=== PATIENT | female | born 1935 | race Caucasian/White ===

== ENCOUNTER 2017-11-17 16:04 | Inpatient (IN) ==
--- NOTE | 2017-11-17 17:20 | Internal Med History&Physical ---
Date of Encounter: 11/17/17 Time of Encounter: 16:15 Assessment and Plan (1) COPD exacerbation Current visit: No Status: Acute she was taken off steroids but not weaned down. she is wheezing and not moving much air. will place on po prednisone and scheduled duonebs and her mdi and oxygen. will place on continuous pulse ox and tele as is weak and very decondtioned. finish levaquin (2) Hypertension, essential Current visit: No Status: Acute (3) DVT prophylaxis Current visit: No Status: Acute on xarelto (4) Atrial fibrillation Current visit: No Status: Acute she had afib with rvr at [facility] and had a beta tacho added to her cardizem. will cont. will place on tele since she is so deconditioned and sob. she is anticoagulated with xarelto Qualifiers: Atrial fibrillation type: chronic Qualified Code(s): I48.2 - Chronic atrial fibrillation (5) Physical deconditioning Current visit: Yes Status: Acute pt ot. she is here for rehab. i am not sure she is going to be able to handle doing this. may need to changed back to acute inpatient. will keep a close eye on her tonight and see how she does Internal Medicine - H&P: HPI Chief complaint: here for rehab Admitted From: Hospital to Hospital Transfer History of present illness: Ms. Bentley is a 82 year old female with a history of resp failure who was intubated at [facility]. she was extubated on 11/13/17. She is been weak deconditioned. She is here for rehabilitation. She does complain of having some shortness of breath she is very tired fatigued we woke her up and she did not know where she was she was confused and disoriented. Notes from [facility] said that she had some psychosis they had stopped her steroids but they did not wean them due to the thought that it was due to the steroids. She denies chest pain. She does have back pain and has been uncomfortable from that the squad ride over here did not help that. s he has a long-standing history of COPD she is a former smoker. This is the first time and she has ever been intubated He just wants to rest. Past Med Surg Social Fam HX - Past Medical History Attestation: Yes The following information was validated with the patient. Medical history: atrial fibrillation, CHF, COPD (with resp failure and intubation), hypertension, osteoporosis Psychiatric history: no psych history - Past Surgical History Surgical History: no surgical history - Social History Smoking Status: Former smoker (quit a year ago) Smokeless Tobacco Status: No Alcohol use: none Drug use: none Current living situation: With Family - Family History Mother Hx Family Cardiac Disorders: Yes (CHF) Father History Unknown: Yes Maternal Grandmother Living Status: Cause of : cad Maternal Grandfather Living Status: Cause of : cad Internal Medicine - H&P: Meds traMADol [Ultram] 50 mg PO TID PRN 02/03/16 [History] Rivaroxaban [Xarelto] 20 mg PO DAILY #30 tablet 02/07/16 [Rx] Albuterol Sulfate [Ventolin Hfa] 2 puff IH Q4H PRN 11/10/17 [History] Umeclidinium Brm/Vilanterol Tr [Anoro Ellipta 62.5-25 Mcg INH] 1 puff IH DAILY 11/10/17 [History] Diltiazem HCl [Diltiazem 24Hr Cd] 360 mg PO DAILY 11/11/17 [History] Budesonide Neb [Pulmicort Neb] 0.5 mg IH BIDR inhsol 11/17/17 [Rx] Docusate [Colace] 100 mg PO BID PRN capsule 11/17/17 [Rx] Furosemide [Lasix] 20 mg PO DAILY #20 tablet 11/17/17 [Rx] Ipratropium/Albuterol Neb [Duoneb] 3 ml IH [id number] 11/17/17 [History] Levofloxacin [Levaquin] 500 mg PO DAILY #3 tablet 11/17/17 [Rx] Metoprolol [Lopressor] 25 mg PO BID tablet 11/17/17 [Rx] Omeprazole [PriLOSEC] 20 mg PO DAILY@0630 capsule. 11/17/17 [Rx] 3 Allergy/AdvReac Type Severity Reaction Status Date / Time Penicillins [PCN] Allergy Rash Verified 02/03/16 13:41 All Systems PM: A 10-system review of systems was performed and is negative for pertinent findings except as documented above in the HPI. - Constitutional Constitutional: malaise, weakness, no chills, no fever(s) - EENT Eyes: no change in vision - Cardiovascular Cardiovascular ROS IM: dyspnea, lightheadedness, no chest pain, no palpitations - Respiratory Respiratory: cough, dyspnea, wheezing - Gastrointestinal Gastrointestinal: constipation, no abdominal pain, no diarrhea, no hematochezia , no melena, no nausea, no vomiting - Genitourinary Genitourinary: no dysuria, no hematuria - Musculoskeletal Musculoskeletal ROS IM: muscle weakness - Integumentary Integumentary IM: no pruritus, no rash - Constitutional General appearance: Present: mild distress, answers questions appropriately ( but did not initially. she was asleep woke her up and she did not know where she was) - Head Head exam: Present: atraumatic, normocephalic - Neck Neck exam general surgery: Present: supple, trachea midline. Absent: lymphadenopathy - Respiratory Respiratory exam: Present: decreased breath sounds, prolonged expiratory phase, wheezes - Cardiovascular Cardiovascular exam: Present: irregular rhythm. Absent: systolic murmur - GI/Abdominal GI/Abdominal exam: Present: normal bowel sounds, soft, no peritoneal signs. Absent: distended, mass, tenderness - Extremities Exam Extremities exam: Present: pedal edema. Absent: normal capillary refill, mottling - Skin Skin exam: Present: dry, warm. Absent: rash
[2017-11-17] MEDS: predniSONE 20 MG TABLET PO SCH (17:48)
[2017-11-17] MEDS: Ipratropium/Albuterol Neb 3 ML IH SCH (17:48)
[2017-11-17] MEDS: traMADol 50 MG TABLET PO PRN (17:49)
[2017-11-17] MEDS: Budesonide Neb 0.5 MG/2 ML IH SCH (21:42)
[2017-11-18] MEDS: Ipratropium/Albuterol Neb 3 ML IH SCH ×6 (00:09→21:44)
[2017-11-18] MEDS: traMADol 50 MG TABLET PO PRN ×2 (04:59→21:46)
[2017-11-18] MEDS ORDERED: *HR* Enoxaparin 40 MG/0.4 ML SYRINGE SQ SCH (06:00)
[2017-11-18 06:18] LABS: Basophils # 0.1 K/mcL (0.0-0.2); Basophils % 0.5 %; Hematocrit 39.4 % (35.3-44.9); Hemoglobin 12.4 g/dL (11.5-15.4); Lymphocytes # 0.8 K/mcL (0.6-4.6); Lymphocytes % 4.3 %; Mean Corpuscular HGB Conc 31.5 g/dL (31.6-35.5); Mean Corpuscular Hemoglobin 29.3 pg (28.0-33.3); Mean Corpuscular Volume 93.1 fL (83.0-100.0); Mean Platelet Volume 10.7 fL (9.4-12.4); Monocytes % 0.8 %; Neutrophils # 16.1 K/mcL (1.6-8.9); Platelet Count 255 K/mcL (140-400); Red Blood Count 4.23 M/mcL (3.82-4.97); Red Cell Distribution Width 15.1 % (11.5-14.5); Segmented Neutrophils % 90.4 %
[2017-11-18 06:20] LABS: INR 1.3; Prothrombin Time 13.7 Seconds (9.4-12.1)
[2017-11-18 06:30] LABS: Monocytes # 0.1 K/mcL (0.0-1.3)
[2017-11-18 06:40] LABS: BUN/Creatinine Ratio 29 (6-26); Blood Urea Nitrogen 23 mg/dL (8-23); Calcium 8.9 mg/dL (8.6-10.3); Carbon Dioxide 41 mEq/L (23-29); Chloride 97 mEq/L (98-107); Glucose 170 mg/dL (70-105); Osmolality,Calculated 302 (280-300); Sodium 142 mEq/L (136-145); eGFR For African Americans > 60 (> 60); eGFR For Non-African Americans > 60 (> 60)
--- NOTE | 2017-11-18 08:02 | Internal Med Progress Note ---
Date of Encounter: 11/18/17 Time of Encounter: 08:02 - Assessment and plan (1) COPD exacerbation Current Visit: Yes Status: Acute (2) Hypertension, essential Current Visit: Yes Status: Acute (3) DVT prophylaxis Current Visit: Yes Status: Acute Assessment and plan: xarelto (4) Atrial fibrillation Current Visit: No Status: Acute Assessment and plan: she did get tachycardia and increased the dose of metoprolol Qualifiers: Atrial fibrillation type: chronic Qualified Code(s): I48.2 - Chronic atrial fibrillation (5) Physical deconditioning Current Visit: Yes Status: Acute Assessment and plan: here for pt/ot rehab - Subjective Interval history: she looks better today. she got up to the restroom had a stool. she did get low on o2 sat but she was not on oxygen and she got tachy. she was sitting in the chair resting comfortably this am taking a new. states her breathing is better, she is still coughing. she did not want to get up this morning but she is glad she did as she feels better and the neb treatments really help her as well she states. she is looking forward to getting stronger so she can get back home and not need someone to look after her. - Constitutional Vitals: Temp Pulse Resp BP Pulse Ox 97.4 F L 82 18 161/78 93 11/18/17 07:01 11/18/17 07:01 11/18/17 07:01 11/18/17 07:01 11/18/17 07:01 General appearance: Present: mild distress, answers questions appropriately ( but did not initially. she was asleep woke her up and she did not know where she was) - Head Head exam: Present: atraumatic, normocephalic - Neck Neck exam general surgery: Present: supple, trachea midline. Absent: lymphadenopathy - Respiratory Respiratory exam: Present: decreased breath sounds (but improved from yesterday) , prolonged expiratory phase, wheezes - Cardiovascular Cardiovascular exam: Present: RRR. Absent: systolic murmur - GI/Abdominal GI/Abdominal exam: Present: normal bowel sounds, soft, no peritoneal signs. Absent: distended, tenderness - Extremities Exam Extremities exam: Present: normal capillary refill, warm. Absent: mottling, pedal edema - Skin Skin exam: Present: dry, warm. Absent: rash Internal Medicine: Result - Labs CBC & Chem 7: 11/18/17 05:55 11/18/17 05:55 Labs: Short CBC 11/18/17 Range/Units 05:55 WBC 17.8 H (4.3-11.1) K/mcL Hgb 12.4 (11.5-15.4) g/dL Hct 39.4 (35.3-44.9) % Plt Count 255 (140-400) K/mcL Neutrophils # 16.1 H (1.6-8.9) K/mcL BMP 11/18/17 05:55 Sodium 142 Potassium 5.0 Chloride 97 L Carbon Dioxide 41 H* BUN 23 Creatinine 0.79 Glucose 170 H Calcium 8.9 - ABG Interpretation ABG results: PT/INR, D-dimer PT 13.7 Seconds (9.4-12.1) H 11/18/17 05:55 Consult Discharge Plan - Plan Referrals: Rosetta Moreau, [employer] [Primary Care Provider] -
[2017-11-18] MEDS: Budesonide Neb 0.5 MG/2 ML IH SCH ×2 (08:04→21:45)
[2017-11-18] MEDS: levoFLOXacin 500 MG TABLET PO SCH (08:44)
[2017-11-18] MEDS: Furosemide 20 MG TABLET PO SCH (08:44)
[2017-11-18] MEDS: Diltiazem CD (24hr) 180 MG CAPSULE PO SCH (08:44)
[2017-11-18] MEDS: predniSONE 20 MG TABLET PO SCH (08:44)
[2017-11-18] MEDS: (Umeclidinium Brm/Vilanterol Tr [Anoro Ellipta 62.5-2 IH SCH (08:45)
[2017-11-18] MEDS: *HR* Rivaroxaban 10 MG TABLET PO SCH (17:00)
[2017-11-18 19:52] LABS: Bilirubin,Urine Negative (Negative); Blood,Urine Trace-intact (Negative); Clarity,Urine Clear (Clear); Color,Urine Yellow (Yellow); Glucose,Urine (UA) Normal (Normal); Ketones,Urine Negative (Negative); Leukocyte Esterase,Urine Trace (Negative); Nitrite,Urine Negative (Negative); PH,Urine 5.5 pH Units (5.0-8.0); Protein,Urine Negative (Neg-Trace); Specific Gravity,Urine 1.015 (1.010-1.025); Urobilinogen,Urine Normal (Normal)
[2017-11-18 20:03] LABS: WBC,Urine 0-3 per hpf (0-3)
[2017-11-19] MEDS: Ipratropium/Albuterol Neb 3 ML IH SCH ×6 (00:18→21:34)
[2017-11-19] MEDS: traMADol 50 MG TABLET PO PRN ×2 (04:27→21:34)
[2017-11-19 05:31] LABS: Basophils # 0.1 K/mcL (0.0-0.2); Basophils % 0.3 %; Hematocrit 34.9 % (35.3-44.9); Hemoglobin 11.2 g/dL (11.5-15.4); Immature Granulocytes % 1.5 % (0-4); Lymphocytes # 1.1 K/mcL (0.6-4.6); Lymphocytes % 6.2 %; Mean Corpuscular HGB Conc 32.1 g/dL (31.6-35.5); Mean Corpuscular Hemoglobin 29.5 pg (28.0-33.3); Mean Corpuscular Volume 91.8 fL (83.0-100.0); Mean Platelet Volume 10.9 fL (9.4-12.4); Monocytes # 0.5 K/mcL (0.0-1.3); Monocytes % 2.7 %; Neutrophils # 15.4 K/mcL (1.6-8.9); Platelet Count 223 K/mcL (140-400); Segmented Neutrophils % 89.3 %
[2017-11-19 06:25] LABS: BUN/Creatinine Ratio 27 (6-26); Blood Urea Nitrogen 24 mg/dL (8-23); Calcium 8.8 mg/dL (8.6-10.3); Carbon Dioxide 43 mEq/L (23-29); Chloride 95 mEq/L (98-107); Glucose 117 mg/dL (70-105); Osmolality,Calculated 297 (280-300); Potassium 4.1 mEq/L (3.5-5.1); Sodium 141 mEq/L (136-145); eGFR For African Americans > 60 (> 60); eGFR For Non-African Americans > 60 (> 60)
[2017-11-19] MEDS: Budesonide Neb 0.5 MG/2 ML IH SCH ×2 (08:00→21:34)
--- NOTE | 2017-11-19 08:26 | Internal Med Progress Note ---
Date of Encounter: 11/19/17 Time of Encounter: 08:26 - Assessment and plan (1) COPD exacerbation Current Visit: Yes Status: Acute Assessment and plan: on po prednisone, duonebs, oxygen, anoro. she is improving. she feels better will continue (2) Hypertension, essential Current Visit: Yes Status: Acute Assessment and plan: stable cont meds (3) DVT prophylaxis Current Visit: Yes Status: Acute Assessment and plan: xarelto (4) Atrial fibrillation Current Visit: No Status: Acute Assessment and plan: she did get tachycardia and increased the dose of metoprolol yesterday and heart rate has stayed in range Qualifiers: Atrial fibrillation type: chronic Qualified Code(s): I48.2 - Chronic atrial fibrillation (5) Physical deconditioning Current Visit: Yes Status: Acute Assessment and plan: here for pt/ot rehab - Subjective Interval history: she looks better today. she has been up to the bathroom today. she is eager to do therapy. she wants to get home. seh feels better. breathing is better. she is alert. the duonebs really help her. no cp,no dizzy. bowels and bladder ok - Constitutional Vitals: Temp Pulse Resp BP Pulse Ox 98.1 F 88 18 129/63 98 11/19/17 07:00 11/19/17 07:00 11/19/17 07:00 11/19/17 07:00 11/19/17 07:00 General appearance: Present: A&O X 3, no acute distress, answers questions appropriately (but did not initially. she was asleep woke her up and she did not know where she was) - Head Head exam: Present: atraumatic, normocephalic - Neck Neck exam general surgery: Present: supple, trachea midline. Absent: tenderness - Respiratory Respiratory exam: Present: decreased breath sounds (but improved), prolonged expiratory phase, wheezes - Cardiovascular Cardiovascular exam: Present: irregular rhythm. Absent: systolic murmur - GI/Abdominal GI/Abdominal exam: Present: normal bowel sounds, soft, no peritoneal signs. Absent: guarding, mass, tenderness - Extremities Exam Extremities exam: Present: normal capillary refill, warm. Absent: pedal edema - Skin Skin exam: Present: dry, warm. Absent: rash Internal Medicine: Result - Labs CBC & Chem 7: 11/19/17 05:20 11/19/17 05:20 Labs: Short CBC 11/19/17 Range/Units 05:20 WBC 17.2 H (4.3-11.1) K/mcL Hgb 11.2 L (11.5-15.4) g/dL Hct 34.9 L (35.3-44.9) % Plt Count 223 (140-400) K/mcL Neutrophils # 15.4 H (1.6-8.9) K/mcL BMP 11/19/17 05:20 Sodium 141 Potassium 4.1 Chloride 95 L Carbon Dioxide 43 H* BUN 24 H Creatinine 0.90 Glucose 117 H Calcium 8.8 Urine 11/18/17 Range/Units 19:00 Urine Color Yellow (Yellow) Urine Clarity Clear (Clear) Urine pH 5.5 (5.0-8.0) pH Units Ur Specific Burton 1.015 (1.010-1.025) Urine Protein Negative (Neg-Trace) mg/dL Urine Glucose (UA) Normal (Normal) mg/dL - ABG Interpretation ABG results: PT/INR, D-dimer PT 13.7 Seconds (9.4-12.1) H 11/18/17 05:55 Consult Discharge Plan - Plan Referrals: Rosetta Moreau, [facility] [Primary Care Provider] -
[2017-11-19] MEDS: levoFLOXacin 500 MG TABLET PO SCH (08:40)
[2017-11-19] MEDS: Furosemide 20 MG TABLET PO SCH (08:40)
[2017-11-19] MEDS: Diltiazem CD (24hr) 180 MG CAPSULE PO SCH (08:40)
[2017-11-19] MEDS: predniSONE 20 MG TABLET PO SCH (08:40)
[2017-11-19] MEDS: (Umeclidinium Brm/Vilanterol Tr [Anoro Ellipta 62.5-2 IH SCH (08:41)
[2017-11-19] MEDS: *HR* Rivaroxaban 10 MG TABLET PO SCH (16:54)
[2017-11-20] MEDS: Ipratropium/Albuterol Neb 3 ML IH SCH ×6 (00:13→21:44)
[2017-11-20 04:40] LABS: Basophils % 0.2 %; Hematocrit 33.3 % (35.3-44.9); Hemoglobin 10.8 g/dL (11.5-15.4); Immature Granulocytes % 1.1 % (0-4); Lymphocytes # 0.7 K/mcL (0.6-4.6); Lymphocytes % 4.3 %; Mean Corpuscular HGB Conc 32.4 g/dL (31.6-35.5); Mean Corpuscular Hemoglobin 29.8 pg (28.0-33.3); Mean Corpuscular Volume 91.7 fL (83.0-100.0); Mean Platelet Volume 10.6 fL (9.4-12.4); Monocytes # 0.5 K/mcL (0.0-1.3); Monocytes % 3.4 %; Neutrophils # 14.5 K/mcL (1.6-8.9); Platelet Count 177 K/mcL (140-400); Red Blood Count 3.63 M/mcL (3.82-4.97); Red Cell Distribution Width 15.1 % (11.5-14.5)
[2017-11-20] MEDS: traMADol 50 MG TABLET PO PRN (04:58)
[2017-11-20 05:16] LABS: BUN/Creatinine Ratio 28 (6-26); Blood Urea Nitrogen 23 mg/dL (8-23); Calcium 8.7 mg/dL (8.6-10.3); Chloride 98 mEq/L (98-107); Glucose 127 mg/dL (70-105); Osmolality,Calculated 299 (280-300); Potassium 3.9 mEq/L (3.5-5.1); Sodium 142 mEq/L (136-145); eGFR For African Americans > 60 (> 60); eGFR For Non-African Americans > 60 (> 60)
[2017-11-20 05:24] LABS: Carbon Dioxide 40 mEq/L (23-29)
--- NOTE | 2017-11-20 08:18 | Internal Med Progress Note ---
Date of Encounter: 11/20/17 Time of Encounter: 08:18 - Assessment and plan (1) COPD exacerbation Current Visit: Yes Status: Acute Assessment and plan: on po prednisone, duonebs oxygen and levaquin. she is improving. will d/c cont puls ox (2) Hypertension, essential Current Visit: Yes Status: Acute (3) DVT prophylaxis Current Visit: Yes Status: Acute Assessment and plan: xarelto (4) Atrial fibrillation Current Visit: No Status: Acute Assessment and plan: rate is in range on cardizem and metoprolol. will leave on tele for now Qualifiers: Atrial fibrillation type: chronic Qualified Code(s): I48.2 - Chronic atrial fibrillation (5) Physical deconditioning Current Visit: Yes Status: Acute Assessment and plan: here for rehab. will work on endurance. she is not refusing therapy but takes breaks. she is motivated and wants to get back to her home - Subjective Interval history: she looks better today. she has been up to the bathroom today. she is eager to do therapy. she wants to get home. breathing is better. she is alert. the duonebs really help her. no cp,no dizzy. bowels and bladder ok. discussed she needs to do an additional 30 min of therapy over what she did yesterday. she did 2 hours and 45 min yesterday - Constitutional Vitals: Temp Pulse Resp BP Pulse Ox 98.2 F 66 16 110/65 96 11/20/17 07:40 11/20/17 07:40 11/20/17 07:40 11/20/17 07:40 11/20/17 07:40 General appearance: Present: A&O X 3, no acute distress, answers questions appropriately (but did not initially. she was asleep woke her up and she did not know where she was) - Head Head exam: Present: atraumatic, normocephalic - Neck Neck exam general surgery: Present: supple, trachea midline. Absent: lymphadenopathy - Respiratory Respiratory exam: Present: decreased breath sounds, prolonged expiratory phase, wheezes - Cardiovascular Cardiovascular exam: Present: RRR. Absent: systolic murmur - GI/Abdominal GI/Abdominal exam: Present: normal bowel sounds, soft, no peritoneal signs. Absent: guarding, mass, tenderness - Extremities Exam Extremities exam: Present: normal capillary refill, warm. Absent: mottling, pedal edema - Skin Skin exam: Present: dry, warm. Absent: rash Internal Medicine: Result - Labs CBC & Chem 7: 11/20/17 04:33 11/20/17 04:33 Labs: Short CBC 11/20/17 Range/Units 04:33 WBC 15.9 H (4.3-11.1) K/mcL Hgb 10.8 L (11.5-15.4) g/dL Hct 33.3 L (35.3-44.9) % Plt Count 177 (140-400) K/mcL Neutrophils # 14.5 H (1.6-8.9) K/mcL BMP 11/20/17 04:33 Sodium 142 Potassium 3.9 Chloride 98 Carbon Dioxide 40 H* BUN 23 Creatinine 0.83 Glucose 127 H Calcium 8.7 - ABG Interpretation ABG results: PT/INR, D-dimer PT 13.7 Seconds (9.4-12.1) H 11/18/17 05:55 Consult Discharge Plan - Plan Referrals: Rosetta Moreau, [employer] [Primary Care Provider] -
[2017-11-20] MEDS: Diltiazem CD (24hr) 180 MG CAPSULE PO SCH (10:51)
[2017-11-20] MEDS: levoFLOXacin 500 MG TABLET PO SCH (10:51)
[2017-11-20] MEDS: Furosemide 20 MG TABLET PO SCH (10:51)
[2017-11-20] MEDS: predniSONE 20 MG TABLET PO SCH (10:52)
[2017-11-20] MEDS: Budesonide Neb 0.5 MG/2 ML IH SCH ×2 (10:52→21:44)
[2017-11-20] MEDS: (Umeclidinium Brm/Vilanterol Tr [Anoro Ellipta 62.5-2 IH SCH (10:52)
[2017-11-20] MEDS: *HR* Rivaroxaban 10 MG TABLET PO SCH (17:59)
[2017-11-21] MEDS: Ipratropium/Albuterol Neb 3 ML IH SCH ×6 (00:08→22:51)
[2017-11-21 05:50] LABS: Basophils % 0.1 %; Hematocrit 34.2 % (35.3-44.9); Hemoglobin 10.8 g/dL (11.5-15.4); Immature Granulocytes % 0.9 % (0-4); Lymphocytes # 0.5 K/mcL (0.6-4.6); Lymphocytes % 3.6 %; Mean Corpuscular HGB Conc 31.6 g/dL (31.6-35.5); Mean Corpuscular Hemoglobin 29.3 pg (28.0-33.3); Mean Corpuscular Volume 92.9 fL (83.0-100.0); Mean Platelet Volume 11.6 fL (9.4-12.4); Monocytes % 3.8 %; Neutrophils # 13.1 K/mcL (1.6-8.9); Platelet Count 186 K/mcL (140-400); Red Blood Count 3.68 M/mcL (3.82-4.97); Red Cell Distribution Width 15.5 % (11.5-14.5); Segmented Neutrophils % 91.6 %
[2017-11-21 05:56] LABS: Monocytes # 0.5 K/mcL (0.0-1.3)
[2017-11-21 06:05] LABS: BUN/Creatinine Ratio 24 (6-26); Blood Urea Nitrogen 21 mg/dL (8-23); Carbon Dioxide 38 mEq/L (23-29); Chloride 101 mEq/L (98-107); Glucose 127 mg/dL (70-105); Osmolality,Calculated 301 (280-300); Potassium 4.5 mEq/L (3.5-5.1); Sodium 143 mEq/L (136-145); eGFR For African Americans > 60 (> 60); eGFR For Non-African Americans > 60 (> 60)
[2017-11-21] MEDS: Diltiazem CD (24hr) 180 MG CAPSULE PO SCH (08:02)
[2017-11-21] MEDS: predniSONE 20 MG TABLET PO SCH (08:03)
[2017-11-21] MEDS: Furosemide 20 MG TABLET PO SCH (08:03)
[2017-11-21] MEDS: traMADol 50 MG TABLET PO PRN ×2 (08:03→18:38)
[2017-11-21] MEDS: levoFLOXacin 500 MG TABLET PO SCH (08:03)
[2017-11-21] MEDS: (Umeclidinium Brm/Vilanterol Tr [Anoro Ellipta 62.5-2 IH SCH (08:04)
[2017-11-21] MEDS: Budesonide Neb 0.5 MG/2 ML IH SCH ×2 (12:58→22:54)
--- NOTE | 2017-11-21 14:22 | Internal Med Progress Note ---
Date of Encounter: 11/21/17 Time of Encounter: 14:22 - Assessment and plan (1) COPD exacerbation Current Visit: Yes Status: Acute Assessment and plan: on po prednisone, duonebs oxygen and levaquin. she is improving. (2) Hypertension, essential Current Visit: Yes Status: Acute Assessment and plan: stable continue medication (3) DVT prophylaxis Current Visit: Yes Status: Acute Assessment and plan: xarelto (4) Atrial fibrillation Current Visit: No Status: Acute Assessment and plan: rate is in range on cardizem and metoprolol. will d/c tele. she remains in afib but rate controlled Qualifiers: Atrial fibrillation type: chronic Qualified Code(s): I48.2 - Chronic atrial fibrillation (5) Physical deconditioning Current Visit: Yes Status: Acute Assessment and plan: here for rehab. will work on endurance. she is not refusing therapy but takes breaks. she is motivated and wants to get back to her home - Subjective Interval history: she had large stool today feels better but it wore her out. breathing is better today. she is participating in therapy but will fatigue. she is very motivated to work. no cp, no n/v. not dizzy. got to closet and got clothes. - Constitutional Vitals: Temp Pulse Resp BP Pulse Ox 98.4 F 80 18 125/67 90 11/21/17 07:10 11/21/17 07:10 11/21/17 07:10 11/21/17 07:10 11/21/17 07:10 General appearance: Present: A&O X 3, no acute distress, answers questions appropriately (but did not initially. she was asleep woke her up and she did not know where she was) - Head Head exam: Present: atraumatic, normocephalic - Neck Neck exam general surgery: Present: supple, trachea midline. Absent: lymphadenopathy - Respiratory Respiratory exam: Present: decreased breath sounds, prolonged expiratory phase, wheezes - Cardiovascular Cardiovascular exam: Present: irregular rhythm. Absent: systolic murmur - GI/Abdominal GI/Abdominal exam: Present: normal bowel sounds, soft, no peritoneal signs. Absent: guarding, tenderness - Extremities Exam Extremities exam: Present: normal capillary refill, pedal edema. Absent: mottling - Skin Skin exam: Present: dry, warm. Absent: rash Internal Medicine: Result - Labs CBC & Chem 7: 11/21/17 05:30 11/21/17 05:30 Labs: Short CBC 11/21/17 Range/Units 05:30 WBC 14.3 H (4.3-11.1) K/mcL Hgb 10.8 L (11.5-15.4) g/dL Hct 34.2 L (35.3-44.9) % Plt Count 186 (140-400) K/mcL Neutrophils # 13.1 H (1.6-8.9) K/mcL BMP 11/21/17 05:30 Sodium 143 Potassium 4.5 Chloride 101 Carbon Dioxide 38 H BUN 21 Creatinine 0.89 Glucose 127 H Calcium 9.0 - ABG Interpretation ABG results: PT/INR, D-dimer PT 13.7 Seconds (9.4-12.1) H 11/18/17 05:55 Consult Discharge Plan - Plan Referrals: Rosetta Moreau, [employer] [Primary Care Provider] -
[2017-11-21] MEDS: *HR* Rivaroxaban 10 MG TABLET PO SCH (18:39)
[2017-11-22] MEDS: Ipratropium/Albuterol Neb 3 ML IH SCH ×6 (00:18→22:10)
[2017-11-22] MEDS: traMADol 50 MG TABLET PO PRN ×2 (05:09→17:54)
[2017-11-22] MEDS: predniSONE 20 MG TABLET PO SCH (09:18)
[2017-11-22] MEDS: Furosemide 20 MG TABLET PO SCH (09:18)
[2017-11-22] MEDS: levoFLOXacin 500 MG TABLET PO SCH (09:18)
[2017-11-22] MEDS: Diltiazem CD (24hr) 180 MG CAPSULE PO SCH (09:18)
[2017-11-22] MEDS: Budesonide Neb 0.5 MG/2 ML IH SCH ×2 (09:18→22:06)
[2017-11-22] MEDS: (Umeclidinium Brm/Vilanterol Tr [Anoro Ellipta 62.5-2 IH SCH (09:19)
--- NOTE | 2017-11-22 10:20 | Internal Med Progress Note ---
Date of Encounter: 11/22/17 Time of Encounter: 10:20 - Assessment and plan (1) COPD exacerbation Current Visit: Yes Status: Acute Assessment and plan: on po prednisone, duonebs oxygen and levaquin. she is improving. (2) Hypertension, essential Current Visit: Yes Status: Acute Assessment and plan: stable continue medication (3) DVT prophylaxis Current Visit: Yes Status: Acute Assessment and plan: xarelto (4) Atrial fibrillation Current Visit: No Status: Acute Assessment and plan: rate is in range on cardizem and metoprolol. she remains in afib but rate controlled Qualifiers: Atrial fibrillation type: chronic Qualified Code(s): I48.2 - Chronic atrial fibrillation (5) Physical deconditioning Current Visit: Yes Status: Acute Assessment and plan: here for rehab. will work on endurance. she is not refusing therapy but takes breaks. she is motivated and wants to get back to her home - Subjective Interval history: breathing is better today. she is participating in therapy but will fatigue. she is very motivated to work. no cp, no n/v. not dizzy. she is enjoying her rest day - Constitutional Vitals: Temp Pulse Resp BP Pulse Ox 98.2 F 75 15 114/55 93 11/22/17 07:16 11/22/17 07:16 11/22/17 07:16 11/22/17 07:16 11/22/17 09:27 General appearance: Present: A&O X 3, no acute distress, answers questions appropriately (but did not initially. she was asleep woke her up and she did not know where she was) - Head Head exam: Present: atraumatic, normocephalic - Neck Neck exam general surgery: Present: supple, trachea midline - Respiratory Respiratory exam: Present: decreased breath sounds, prolonged expiratory phase, wheezes - Cardiovascular Cardiovascular exam: Present: irregular rhythm. Absent: systolic murmur - GI/Abdominal GI/Abdominal exam: Present: normal bowel sounds, soft, no peritoneal signs. Absent: guarding, rebound, tenderness - Extremities Exam Extremities exam: Present: pedal edema, warm - Skin Skin exam: Present: dry, warm. Absent: rash Internal Medicine: Result - Labs CBC & Chem 7: 11/21/17 05:30 11/21/17 05:30 - ABG Interpretation ABG results: PT/INR, D-dimer PT 13.7 Seconds (9.4-12.1) H 11/18/17 05:55 Consult Discharge Plan - Plan Referrals: Rosetta Moreau CNP [Primary Care Provider] -
[2017-11-22] MEDS: *HR* Rivaroxaban 10 MG TABLET PO SCH (17:54)
[2017-11-23] MEDS: Ipratropium/Albuterol Neb 3 ML IH SCH ×6 (00:10→21:58)
[2017-11-23] MEDS: traMADol 50 MG TABLET PO PRN ×2 (04:59→16:52)
--- NOTE | 2017-11-23 08:19 | Internal Med Progress Note ---
Date of Encounter: 11/23/17 Time of Encounter: 08:19 - Assessment and plan (1) COPD exacerbation Current Visit: Yes Status: Acute Assessment and plan: on po prednisone, duonebs oxygen and levaquin. she is improving. (2) Hypertension, essential Current Visit: Yes Status: Acute Assessment and plan: stable continue medication (3) DVT prophylaxis Current Visit: Yes Status: Acute Assessment and plan: xarelto (4) Atrial fibrillation Current Visit: No Status: Acute Assessment and plan: rate is in range on cardizem and metoprolol. she remains in afib but rate controlled Qualifiers: Atrial fibrillation type: chronic Qualified Code(s): I48.2 - Chronic atrial fibrillation (5) Physical deconditioning Current Visit: Yes Status: Acute Assessment and plan: here for rehab. will work on endurance. she is not refusing therapy but takes breaks. she is motivated and wants to get back to her home. she told her family not to come see her until after her therapy was done for the day. - Subjective Interval history: breathing is better today. she is participating in therapy but will fatigue. she is very motivated to work. no cp, no n/v. not dizzy. - Constitutional Vitals: Temp Pulse Resp BP Pulse Ox 98.0 F 80 16 110/53 95 11/23/17 07:17 11/23/17 07:17 11/23/17 07:17 11/23/17 07:17 11/23/17 07:17 General appearance: Present: A&O X 3, no acute distress, answers questions appropriately (but did not initially. she was asleep woke her up and she did not know where she was) - Head Head exam: Present: atraumatic, normocephalic - Neck Neck exam general surgery: Present: supple, trachea midline. Absent: lymphadenopathy - Respiratory Respiratory exam: Present: decreased breath sounds, prolonged expiratory phase, wheezes - Cardiovascular Cardiovascular exam: Present: irregular rhythm - GI/Abdominal GI/Abdominal exam: Present: distended, normal bowel sounds, soft, no peritoneal signs - Extremities Exam Extremities exam: Present: normal capillary refill, pedal edema, warm. Absent: mottling - Skin Skin exam: Present: dry, warm Internal Medicine: Result - Labs CBC & Chem 7: 11/21/17 05:30 11/21/17 05:30 - ABG Interpretation ABG results: PT/INR, D-dimer PT 13.7 Seconds (9.4-12.1) H 11/18/17 05:55 Consult Discharge Plan - Plan Referrals: Rosetta Moreau, [employer] [Primary Care Provider] -
[2017-11-23] MEDS: predniSONE 20 MG TABLET PO SCH (09:05)
[2017-11-23] MEDS: levoFLOXacin 500 MG TABLET PO SCH (09:05)
[2017-11-23] MEDS: Furosemide 20 MG TABLET PO SCH (09:06)
[2017-11-23] MEDS: Diltiazem CD (24hr) 180 MG CAPSULE PO SCH (09:06)
[2017-11-23] MEDS: (Umeclidinium Brm/Vilanterol Tr [Anoro Ellipta 62.5-2 IH SCH (09:08)
[2017-11-23] MEDS: Budesonide Neb 0.5 MG/2 ML IH SCH ×2 (10:25→22:20)
[2017-11-23] MEDS: *HR* Rivaroxaban 10 MG TABLET PO SCH (16:50)
--- NOTE | 2017-11-23 19:56 | Physcial Medicine-Consult Note ---
Date of Encounter: 11/23/17 Time of Encounter: 15:15 Physical Medicine - AP (1) Physical deconditioning Comments: Continue therapies. Good progress. Ambulating 115' with wheeled walker stand by assist to contact guard. Still requires frequent rest breaks for shortness of breath. Self care at contact guard assist. Rehab EDC is 2017. Status: Acute Assessment and plan: Continue rehab. Discharge planning. Code(s): R53.81 - Other malaise SNOMED Code(s): 39978574794067 Physical Medicine - HPI - Data of Consult Requesting Physician: Tati Haque, Primary Care Provider: Rosetta Moreau CNP - Consult Narrative History of present illness: Ms. Bentley is a 82 year old right hand dominant female admitted acute on 2017 with hypoxic respiratory failure. She had to be intubated and placed on a ventilator. She had bilateral pneumonia with sepsis, Afib, COPD, and JAMILAH. She was treated medically and improved but continued to have poor pulmonary reserve. She is admitted to [facility] for Pulmonary rehabilitation and further medical management. Currently, she complains of intermitten low back pain, and is aware of her diminished endurance. She states she does not use oxygen at home , but the medical record states she uses O2 ocassionally at night. Her goals for the rehab stay are to regain her endurance to resume her normal activities. CC: Tati Haque, Past Med Surg Social Fam HX - Past Medical History Attestation: Yes The following information was validated with the patient. Medical history: atrial fibrillation, CHF, COPD, hypertension, osteoporosis Psychiatric history: no psych history - Past Surgical History Surgical History: no surgical history - Social History Smoking Status: Former smoker Smokeless Tobacco Status: No Alcohol use: none Drug use: none - Family History Mother Hx Family Cardiac Disorders: Yes Father History Unknown: Yes Maternal Grandmother Living Status: Cause of : cad Maternal Grandfather Living Status: Cause of : cad Medications and Allergies traMADol [Ultram] 50 mg PO TID PRN 02/03/16 [History] Rivaroxaban [Xarelto] 20 mg PO DAILY #30 tablet 02/07/16 [Rx] Albuterol Sulfate [Ventolin Hfa] 2 puff IH Q4H PRN 11/10/17 [History] Umeclidinium Brm/Vilanterol Tr [Anoro Ellipta 62.5-25 Mcg INH] 1 puff IH DAILY 11/10/17 [History] Diltiazem HCl [Diltiazem 24Hr Cd] 360 mg PO DAILY 11/11/17 [History] Budesonide Neb [Pulmicort Neb] 0.5 mg IH BIDR inhsol 11/17/17 [Rx] Docusate [Colace] 100 mg PO BID PRN capsule 11/17/17 [Rx] Furosemide [Lasix] 20 mg PO DAILY #20 tablet 11/17/17 [Rx] Ipratropium/Albuterol Neb [Duoneb] 3 ml IH [id number] 11/17/17 [History] Levofloxacin [Levaquin] 500 mg PO DAILY #3 tablet 11/17/17 [Rx] Metoprolol [Lopressor] 25 mg PO BID tablet 11/17/17 [Rx] Omeprazole [PriLOSEC] 20 mg PO DAILY@0630 capsule. 11/17/17 [Rx] 3 Allergy/AdvReac Type Severity Reaction Status Date / Time Penicillins [PCN] Allergy Rash Verified 02/03/16 13:41 All systems: reviewed and no additional remarkable complaints except as stated ( see HPI and PMH) Physical Medicine - Exam - Constitutional Vitals: Temp Pulse Resp BP Pulse Ox 98.1 F 74 16 103/60 93 11/23/17 19:00 11/23/17 19:00 11/23/17 19:00 11/23/17 19:00 11/23/17 19:00 - Head Head exam: Present: atraumatic, normocephalic - Eye Eye exam: Present: EOMI, normal appearance - ENT ENT exam: Present: mucous membranes moist - Neck Neck exam: Present: full ROM - Respiratory Respiratory exam: Present: decreased breath sounds, wheezes - Cardiovascular Cardiovascular exam: Present: irregular rhythm - GI/Abdominal GI/Abdominal exam: Present: normal bowel sounds - Extremities Exam Extremities exam: Present: normal inspection Additional comments: 4/5 srtength throughout. No CCE - Neurological Exam Neurological exam: Present: alert, CN II-XII intact, oriented X3, reflexes normal Additional comments: Sensation intact. - Psychiatric Psychiatric exam: Present: normal affect, normal mood - Skin Skin exam: Present: normal color Physical Medicine - Results - Labs CBC & Chem 7: 11/21/17 05:30 11/21/17 05:30 Labs: Anemia Consult Discharge Plan - Plan Referrals: Rosetta Moreau CNP [Primary Care Provider] -
[2017-11-24] MEDS: Ipratropium/Albuterol Neb 3 ML IH SCH ×7 (00:51→23:39)
[2017-11-24] MEDS: traMADol 50 MG TABLET PO PRN (03:53)
[2017-11-24 06:44] LABS: Basophils % 0.1 %; Hematocrit 31.7 % (35.3-44.9); Hemoglobin 10.1 g/dL (11.5-15.4); Immature Granulocytes % 0.8 % (0-4); Lymphocytes # 0.7 K/mcL (0.6-4.6); Lymphocytes % 4.1 %; Mean Corpuscular HGB Conc 31.9 g/dL (31.6-35.5); Mean Corpuscular Hemoglobin 29.3 pg (28.0-33.3); Mean Corpuscular Volume 91.9 fL (83.0-100.0); Mean Platelet Volume 12.1 fL (9.4-12.4); Monocytes # 0.6 K/mcL (0.0-1.3); Monocytes % 3.8 %; Neutrophils # 14.5 K/mcL (1.6-8.9); Platelet Count 202 K/mcL (140-400); Red Blood Count 3.45 M/mcL (3.82-4.97); Red Cell Distribution Width 15.9 % (11.5-14.5); Segmented Neutrophils % 91.2 %
[2017-11-24 06:59] LABS: BUN/Creatinine Ratio 24 (6-26); Blood Urea Nitrogen 21 mg/dL (8-23); Calcium 8.8 mg/dL (8.6-10.3); Carbon Dioxide 39 mEq/L (23-29); Chloride 99 mEq/L (98-107); Glucose 98 mg/dL (70-105); Osmolality,Calculated 295 (280-300); Potassium 3.8 mEq/L (3.5-5.1); Sodium 141 mEq/L (136-145); eGFR For African Americans > 60 (> 60); eGFR For Non-African Americans > 60 (> 60)
[2017-11-24] MEDS: levoFLOXacin 500 MG TABLET PO SCH (07:46)
[2017-11-24] MEDS: Furosemide 20 MG TABLET PO SCH (07:46)
[2017-11-24] MEDS: Diltiazem CD (24hr) 180 MG CAPSULE PO SCH (07:46)
[2017-11-24] MEDS: predniSONE 20 MG TABLET PO SCH (07:46)
[2017-11-24] MEDS: (Umeclidinium Brm/Vilanterol Tr [Anoro Ellipta 62.5-2 IH SCH (07:47)
[2017-11-24] MEDS: Budesonide Neb 0.5 MG/2 ML IH SCH ×2 (08:39→21:19)
[2017-11-24] MEDS: Sulfamethoxazole/Trimeth DS 1 EACH TABLET PO SCH ×2 (11:31→21:19)
[2017-11-24] MEDS: *HR* Rivaroxaban 10 MG TABLET PO SCH (16:23)
[2017-11-25] MEDS: Ipratropium/Albuterol Neb 3 ML IH SCH ×5 (03:57→20:54)
[2017-11-25] MEDS ORDERED: Ondansetron ODT 4 MG TAB.RAPDIS SL PRN (08:06)
[2017-11-25] MEDS: predniSONE 20 MG TABLET PO SCH (08:58)
[2017-11-25] MEDS: Sulfamethoxazole/Trimeth DS 1 EACH TABLET PO SCH ×2 (08:59→20:54)
[2017-11-25] MEDS: Furosemide 20 MG TABLET PO SCH (08:59)
[2017-11-25] MEDS: Diltiazem CD (24hr) 180 MG CAPSULE PO SCH (08:59)
[2017-11-25] MEDS: (Umeclidinium Brm/Vilanterol Tr [Anoro Ellipta 62.5-2 IH SCH (09:06)
[2017-11-25] MEDS: Budesonide Neb 0.5 MG/2 ML IH SCH ×2 (09:40→20:54)
--- NOTE | 2017-11-25 12:23 | Internal Med Progress Note ---
Date of Encounter: 11/25/17 Time of Encounter: 13:46 - Assessment and plan (1) COPD exacerbation Current Visit: Yes Status: Acute Assessment and plan: on po prednisone will wean to 40 mg, duonebs oxygen. will d/c the levaquin as she finished the course she is improving. (2) Hypertension, essential Current Visit: Yes Status: Acute Assessment and plan: stable continue medication (3) DVT prophylaxis Current Visit: Yes Status: Acute Assessment and plan: xarelto (4) Atrial fibrillation Current Visit: No Status: Acute Assessment and plan: rate is in range on cardizem and metoprolol. she remains in afib but rate controlled Qualifiers: Atrial fibrillation type: chronic Qualified Code(s): I48.2 - Chronic atrial fibrillation (5) Physical deconditioning Current Visit: Yes Status: Acute Assessment and plan: here for rehab. will work on endurance. she is not refusing therapy but takes breaks. she is motivated and wants to get back to her home. she told her family not to come see her until after her therapy was done for the day. (6) Emesis Current Visit: Yes Status: Acute Assessment and plan: will lower the prednisone dose, increase the ppi dose and give prn zofran Qualifiers: Vomiting type: unspecified Vomiting Intractability: unspecified Nausea presence: unspecified Qualified Code(s): R11.10 - Vomiting, unspecified (7) UTI (urinary tract infection) Current Visit: Yes Status: Acute Assessment and plan: on bactrim per sensitivity Qualifiers: Urinary tract infection type: acute cystitis Hematuria presence: with hematuria Qualified Code(s): N30.01 - Acute cystitis with hematuria - Subjective Interval history: this morning she had nausea and then had some emesis 100cc of clear emesis. she also had diarrhea. feels better now. she ate her lunch well. no nausea now. she was dizzy with the diarrhea, not now. no abd pain, no cp no palp breathing better - Constitutional Vitals: Temp Pulse Resp BP Pulse Ox 97.8 F 90 20 118/68 92 11/25/17 07:33 11/25/17 07:33 11/25/17 07:57 11/25/17 07:33 11/25/17 08:00 General appearance: Present: A&O X 3, no acute distress, answers questions appropriately (but did not initially. she was asleep woke her up and she did not know where she was) - Head Head exam: Present: atraumatic, normocephalic - Neck Neck exam general surgery: Present: supple, trachea midline - Respiratory Respiratory exam: Present: decreased breath sounds, prolonged expiratory phase, wheezes - Cardiovascular Cardiovascular exam: Present: irregular rhythm. Absent: systolic murmur - GI/Abdominal GI/Abdominal exam: Present: normal bowel sounds, soft, no peritoneal signs. Absent: guarding, tenderness - Extremities Exam Extremities exam: Present: pedal edema, warm - Skin Skin exam: Present: dry, warm. Absent: rash Internal Medicine: Result - Labs CBC & Chem 7: 11/24/17 06:15 11/24/17 06:15 - ABG Interpretation ABG results: PT/INR, D-dimer PT 13.7 Seconds (9.4-12.1) H 11/18/17 05:55 Consult Discharge Plan - Plan Referrals: Rosetta Moreau, NETWORK SERVICES PROJECT MANAGER [Primary Care Provider] -
[2017-11-25] MEDS: *HR* Rivaroxaban 10 MG TABLET PO SCH (16:30)
[2017-11-25 21:06] LABS: Basophils % 0.1 %; Hematocrit 29.7 % (35.3-44.9); Hemoglobin 9.6 g/dL (11.5-15.4); Immature Granulocytes % 0.8 % (0-4); Lymphocytes # 0.2 K/mcL (0.6-4.6); Lymphocytes % 1.1 %; Mean Corpuscular HGB Conc 32.3 g/dL (31.6-35.5); Mean Corpuscular Hemoglobin 29.9 pg (28.0-33.3); Mean Corpuscular Volume 92.5 fL (83.0-100.0); Mean Platelet Volume 11.9 fL (9.4-12.4); Monocytes # 0.3 K/mcL (0.0-1.3); Monocytes % 1.8 %; Neutrophils # 15.2 K/mcL (1.6-8.9); Platelet Count 198 K/mcL (140-400); Red Blood Count 3.21 M/mcL (3.82-4.97); Segmented Neutrophils % 96.2 %
[2017-11-25 21:25] LABS: BUN/Creatinine Ratio 27 (6-26); Blood Urea Nitrogen 29 mg/dL (8-23); Calcium 8.3 mg/dL (8.6-10.3); Carbon Dioxide 33 mEq/L (23-29); Chloride 101 mEq/L (98-107); Glucose 135 mg/dL (70-105); Osmolality,Calculated 296 (280-300); Potassium 4.4 mEq/L (3.5-5.1); Sodium 139 mEq/L (136-145); eGFR For African Americans > 60 (> 60); eGFR For Non-African Americans 50 (> 60)
[2017-11-25 21:26] LABS: Albumin 2.8 g/dL (3.5-5.7); Albumin/Globulin Ratio 1.2 (1.1-2.2); Bilirubin,Direct 0.1 mg/dL (0.0-0.2); Bilirubin,Indirect 0.3 mg/dL (0.0-1.2); Bilirubin,Total 0.4 mg/dL (0.3-1.0); Globulin 2.4 g/dL (2.4-3.5); Total Protein 5.2 g/dL (6.4-8.9)
[2017-11-25] MEDS ORDERED: 0.9 % Sodium Chloride 500 ML IVC SCH (22:15)
[2017-11-25] MEDS ORDERED: methylPREDNISolone 125 MG/2 ML VIAL IVP ONE (23:15)
[2017-11-26] MEDS ORDERED: 0.9 % Sodium Chloride 500 ML IVC ONE (00:15)
[2017-11-26] MEDS: Ipratropium/Albuterol Neb 3 ML IH SCH ×6 (00:22→21:06)
[2017-11-26] MEDS: Ipratropium/Albuterol Neb 3 ML IH PRN (03:20)
[2017-11-26] MEDS: Furosemide 20 MG TABLET PO SCH ×2 (03:28→17:48)
[2017-11-26] MEDS: Diltiazem CD (24hr) 180 MG CAPSULE PO SCH (08:31)
[2017-11-26] MEDS: predniSONE 20 MG TABLET PO SCH (08:32)
[2017-11-26] MEDS: Budesonide Neb 0.5 MG/2 ML IH SCH ×2 (08:32→21:06)
[2017-11-26] MEDS: Sulfamethoxazole/Trimeth DS 1 EACH TABLET PO SCH ×2 (08:32→21:06)
[2017-11-26] MEDS: (Umeclidinium Brm/Vilanterol Tr [Anoro Ellipta 62.5-2 IH SCH (08:34)
--- NOTE | 2017-11-26 13:17 | Internal Med Progress Note ---
Date of Encounter: 11/26/17 Time of Encounter: 08:20 - Assessment and plan (1) COPD exacerbation Current Visit: Yes Status: Acute Assessment and plan: on po prednisone will wean to 40 mg, duonebs oxygen. last pm had more wheezing and hypoxia. gave iv solumedrol. she is better now will continue with the current medications (2) Hypertension, essential Current Visit: Yes Status: Acute Assessment and plan: had to lower metoprolol dose due to the low bp (3) DVT prophylaxis Current Visit: Yes Status: Acute Assessment and plan: xarelto (4) Atrial fibrillation Current Visit: Yes Status: Acute Assessment and plan: rate is in range on cardizem and metoprolol. she remains in afib but rate controlled, did lower the metoprolol dose today due to the low bp Qualifiers: Atrial fibrillation type: chronic Qualified Code(s): I48.2 - Chronic atrial fibrillation (5) Physical deconditioning Current Visit: Yes Status: Acute Assessment and plan: here for rehab. will work on endurance. she is not refusing therapy but takes breaks. she is motivated and wants to get back to her home. will not put her through much today with the hypotension last night (6) Emesis Current Visit: Yes Status: Acute Assessment and plan: none since yesterday. no abd pain. will continue to watch try to avoid the zofran Qualifiers: Vomiting type: unspecified Vomiting Intractability: unspecified Nausea presence: unspecified Qualified Code(s): R11.10 - Vomiting, unspecified (7) UTI (urinary tract infection) Current Visit: Yes Status: Acute Assessment and plan: on bactrim per sensitivity Qualifiers: Urinary tract infection type: acute cystitis Hematuria presence: with hematuria Qualified Code(s): N30.01 - Acute cystitis with hematuria (8) Hypotension Current Visit: Yes Status: Acute Assessment and plan: likely due to dehydration with the emesis and diarrhea. did give 500cc of ns last night and held last night metoprolol will lower the dose this morning. bp have improved. will continue to follow Qualifiers: Hypotension type: unspecified hypotension type Qualified Code(s): I95.9 - Hypotension, unspecified - Subjective Interval history: last night she got hypotension to the 90s, sob wheeze. she did get iv solumedrol, the dose of the metoprolol was lowered today but held last night. no emesis since yesterday and no more diarrhea. gave her some ivf after the diarrhea and emesis. she feels better now. no abd pain, no cp no palp breathing better - Constitutional Vitals: Temp Pulse Resp BP Pulse Ox 98.3 F 96 18 98/46 94 11/26/17 11:40 11/26/17 11:40 11/26/17 11:58 11/26/17 11:40 11/26/17 11:40 General appearance: Present: A&O X 3, no acute distress, answers questions appropriately (but did not initially. she was asleep woke her up and she did not know where she was) - Head Head exam: Present: atraumatic, normocephalic - Neck Neck exam general surgery: Present: supple, trachea midline. Absent: tenderness - Respiratory Respiratory exam: Present: decreased breath sounds (but that has improved over prior), prolonged expiratory phase, wheezes - Cardiovascular Cardiovascular exam: Present: irregular rhythm. Absent: systolic murmur - GI/Abdominal GI/Abdominal exam: Present: normal bowel sounds, soft, no peritoneal signs. Absent: distended, guarding, mass, tenderness - Extremities Exam Extremities exam: Present: pedal edema. Absent: cyanotic - Skin Skin exam: Present: dry, warm Internal Medicine: Result - Labs CBC & Chem 7: 11/25/17 21:04 11/25/17 21:04 Labs: Short CBC 11/25/17 Range/Units 21:04 WBC 15.8 H (4.3-11.1) K/mcL Hgb 9.6 L (11.5-15.4) g/dL Hct 29.7 L (35.3-44.9) % Plt Count 198 (140-400) K/mcL Neutrophils # 15.2 H (1.6-8.9) K/mcL BMP 11/25/17 21:04 Sodium 139 Potassium 4.4 Chloride 101 Carbon Dioxide 33 H BUN 29 H Creatinine 1.06 Glucose 135 H Calcium 8.3 L Liver Function 11/25/17 Range/Units 21:04 Total Bilirubin 0.4 (0.3-1.0) mg/dL Direct Bilirubin 0.1 (0.0-0.2) mg/dL AST 8 L (13-39) Units/L ALT 19 (7-52) Units/L Alkaline Phosphatase 70 (34-104) Units/L Albumin 2.8 L (3.5-5.7) g/dL - ABG Interpretation ABG results: PT/INR, D-dimer PT 13.7 Seconds (9.4-12.1) H 11/18/17 05:55 - Impressions Impressions Chest X-Ray 11/25/17 22:04 IMPRESSION: Right greater than left bibasilar pleural and parenchymal lung disease with pulmonary vascular congestion may represent manifestation of congestive heart failure and or pneumonia. D/ / Srinivas Cox MD / Srinivas Cox MD Interpreting Provider: Srinivas Cox MD Consult Discharge Plan - Plan Referrals: Rosetta Moreau, HOME HEALTH OUTREACH COORDINATOR [Primary Care Provider] -
[2017-11-26] MEDS: *HR* Rivaroxaban 10 MG TABLET PO SCH (17:48)
[2017-11-27] MEDS: methylPREDNISolone 125 MG/2 ML VIAL IVP SCH ×2 (00:01→09:21)
[2017-11-27] MEDS: Ipratropium/Albuterol Neb 3 ML IH SCH ×5 (00:01→16:05)
[2017-11-27 05:10] LABS: Calcium 9.2 mg/dL (8.6-10.3); Potassium 4.5 mEq/L (3.5-5.1)
[2017-11-27] MEDS: Ipratropium/Albuterol Neb 3 ML IH PRN (06:24)
[2017-11-27] MEDS: Furosemide 20 MG TABLET PO SCH (06:24)
--- NOTE | 2017-11-27 08:21 | Internal Med Progress Note ---
Date of Encounter: 11/27/17 Time of Encounter: 08:21 - Assessment and plan (1) COPD exacerbation Current Visit: Yes Status: Acute Assessment and plan: she is back on iv solumedrol, duonebs oxygen. last pm had more wheezing and hypoxia. she is not feeling well. she is tired and more sob, will check cxr (2) Hypertension, essential Current Visit: Yes Status: Acute Assessment and plan: had to lower metoprolol dose due to the low bp, bp is better (3) DVT prophylaxis Current Visit: Yes Status: Acute Assessment and plan: xarelto (4) Atrial fibrillation Current Visit: Yes Status: Acute Assessment and plan: rate is in range on cardizem and metoprolol. she remains in afib but rate controlled, did lower the metoprolol dose due to the low bp Qualifiers: Atrial fibrillation type: chronic Qualified Code(s): I48.2 - Chronic atrial fibrillation (5) Physical deconditioning Current Visit: Yes Status: Acute Assessment and plan: here for rehab. will work on endurance. she is not refusing therapy but takes breaks. she is motivated and wants to get back to her home. discussed changing her SNF with her and her daughter and daughter got tearful on the phone and did not want to give up on her mom, jovani wants to stay on rehab . it is not worth the the mental drain to the family to change her (6) Emesis Current Visit: Yes Status: Acute Assessment and plan: none since thu. no abd pain. will continue to watch try to avoid the zofran Qualifiers: Vomiting type: unspecified Vomiting Intractability: unspecified Nausea presence: unspecified Qualified Code(s): R11.10 - Vomiting, unspecified (7) UTI (urinary tract infection) Current Visit: Yes Status: Acute Assessment and plan: on bactrim per sensitivity Qualifiers: Urinary tract infection type: acute cystitis Hematuria presence: with hematuria Qualified Code(s): N30.01 - Acute cystitis with hematuria (8) Hypotension Current Visit: Yes Status: Acute Assessment and plan: likely due to dehydration with the emesis and diarrhea. did give 500cc of ns and lowered metoprolol/ she did get some fluid overload with that. bp have improved. will continue to follow Qualifiers: Hypotension type: unspecified hypotension type Qualified Code(s): I95.9 - Hypotension, unspecified - Subjective Interval history: she is feeling rough this am more sob, cough, fatigue. no abd pain no n/v, just not feeling up to par. more wheezing. discussed changing her to SNF, she got upset she wants stay rehab and get home. - Constitutional Vitals: Temp Pulse Resp BP Pulse Ox 98.6 F 98 14 123/54 91 11/27/17 07:48 11/27/17 07:48 11/27/17 07:48 11/27/17 07:48 11/27/17 07:48 General appearance: Present: A&O X 3, no acute distress, answers questions appropriately (but did not initially. she was asleep woke her up and she did not know where she was) - Head Head exam: Present: atraumatic, normocephalic - Neck Neck exam general surgery: Present: trachea midline. Absent: tenderness - Respiratory Respiratory exam: Present: decreased breath sounds, prolonged expiratory phase, wheezes - Cardiovascular Cardiovascular exam: Present: irregular rhythm. Absent: systolic murmur - GI/Abdominal GI/Abdominal exam: Present: normal bowel sounds, soft, no peritoneal signs. Absent: distended, mass, tenderness - Extremities Exam Extremities exam: Present: pedal edema, warm - Skin Skin exam: Present: dry, warm Internal Medicine: Result - Labs CBC & Chem 7: 11/25/17 21:04 11/27/17 04:49 Labs: BMP 11/27/17 04:49 Sodium 137 Potassium 4.5 Chloride 97 L Carbon Dioxide 34 H BUN 27 H Creatinine 1.10 Glucose 152 H Calcium 9.2 - ABG Interpretation ABG results: PT/INR, D-dimer PT 13.7 Seconds (9.4-12.1) H 11/18/17 05:55 Consult Discharge Plan - Plan Referrals: Rosetta Moreau, PROFESSOR OF BUSINESS ADMINISTRATION [Primary Care Provider] -
[2017-11-27] MEDS ORDERED: Furosemide 40 MG/4 ML VIAL IVP ONE (08:34)
[2017-11-27] MEDS: predniSONE 20 MG TABLET PO SCH (09:21)
[2017-11-27] MEDS: Diltiazem CD (24hr) 180 MG CAPSULE PO SCH (09:21)
[2017-11-27] MEDS: Sulfamethoxazole/Trimeth DS 1 EACH TABLET PO SCH (09:21)
[2017-11-27] MEDS: Budesonide Neb 0.5 MG/2 ML IH SCH (09:22)
[2017-11-27] MEDS: (Umeclidinium Brm/Vilanterol Tr [Anoro Ellipta 62.5-2 IH SCH (09:22)
[2017-11-27] MEDS ORDERED: cefTRIAXone 1,000 MG in Water for inj. (sterile) 20 ML 10 ML IVP SCH (15:00)
[2017-11-27 16:04] VITALS: BP 121/61
--- NOTE | 2017-11-27 16:56 | Physical Med Progress Note ---
Date of Encounter: 11/27/17 Time of Encounter: 16:15 Assessment and Plan (1) Physical deconditioning Current Visit: Yes Status: Acute Assessment and plan: No longer a candidate for IPR. Medical per Dr. Choudhury and Dr. Garcia. Pulmonary decompensation Physical Medicine-PN: Subj Interval history: Unresponsive - Constitutional Vitals: Vital Signs Temp Pulse Resp BP Pulse Ox 11/27/17 16:00 83 36 121/61 89 11/27/17 12:01 98.4 F 102 20 113/63 96 11/27/17 11:00 97.9 F 120 18 131/77 11/27/17 07:48 98.6 F 98 14 123/54 91 11/27/17 04:00 98.0 F 98 19 107/61 87 11/27/17 00:00 97.7 F 86 16 96/53 91 11/26/17 19:00 97.8 F 84 16 104/60 94 Intake and Output 11/27/17 11/27/17 11/27/17 07:59 15:59 23:59 Output Total 400 / 400 400 / 400 Balance -400 / -400 -400 / -400 Output: Urine 400 / 400 400 / 400 - Respiratory Respiratory exam: Present: accessory muscle use, decreased breath sounds, rales , respiratory distress, tachypnea - Extremities Exam Additional comments: No active participation Physical Medicine-PN: Obj Data - Labs CBC & Chem 7: 11/25/17 21:04 11/27/17 04:49 Labs: Laboratory Results - last 24 hr 11/27/17 11/27/17 04:49 04:49 Sodium 137 Potassium 4.5 Chloride 97 L Carbon Dioxide 34 H BUN 27 H Creatinine 1.10 Est GFR ( Amer) 58 L Est GFR (Non-Af Amer) 48 L BUN/Creatinine Ratio 25 Glucose 152 H Calculated Osmolality 292 Calcium 9.2 B-Natriuretic Peptide 403 H Anemia, Leukocytosis - Impressions Impressions Chest X-Ray 11/27/17 12:43 IMPRESSION: 1. Increased bilateral perihilar and less prominent patchy bilateral upper lobe airspace opacities and questionable increased diffuse interstitial opacities. The appearance favors increased alveolar and interstitial edema, although pneumonia could appear similar. 2. Unchanged right basilar airspace opacity, potentially atelectasis, pneumonia, and/or aspiration. 3. Likely unchanged bilateral pleural effusions, larger on the right. D/ / Chong Canales MD / Chong Canales MD Interpreting Provider: Chong Canales MD - ABG Interpretation ABG results: PT/INR, D-dimer PT 13.7 Seconds (9.4-12.1) H 11/18/17 05:55 Consult Discharge Plan - Plan Referrals: Rosetta Moreau, ASSEMBLY LINE INSPECTOR [Primary Care Provider] -
[2017-11-27] MEDS ORDERED: *HR* Rivaroxaban 15 MG TABLET PO SCH (17:00)
--- NOTE | 2017-11-27 17:57 | Discharge Summary ---
Orders not resulted at time of discharge: Pending orders 11/27/17 15:00 Culture,Blood [BC] Stat 11/27/17 15:20 Culture,Blood,Additional [BC] Stat 11/28/17 04:00 B-Type Natriuretic Peptide AM 0400 BMP [Basic Metabolic Panel] AM 0400 Complete Blood Count [HEME] AM 0400 Date of Encounter: 11/27/17 Time of Encounter: 17:32 - Discharge Diagnosis (1) COPD exacerbation Priority: Primary Status: Acute Comments: She was here for rehabilitation she was doing well from respiratory standpoint she was weaned down to 40 mg by mouth daily of prednisone she had completed her full course of Levaquin. She was very motivated to participate in therapy. But she had a gradual decline in her respiratory status today she became very to Short of breath not alert she was hypoxic she ended up getting nonrebreather to a BiPAP she was transferred to [place]. (2) Hypertension, essential Priority: Secondary Status: Chronic Comments: Had been stable on her medications but she did end up having some hypotension yesterday and did receive IV fluids. Did get better with the IV fluids. And lowering her metoprolol dose (3) DVT prophylaxis Priority: Secondary Status: Acute (4) Atrial fibrillation Priority: Secondary Status: Chronic Comments: She initially had some tachycardia when she first came her metoprolol dose was raised from 25 twice a day 2 of 50 twice a dayd she remained rate controlled we did have to lower her metoprolol dose due to her low blood pressures. But she still remained rate controlled Qualifiers: Atrial fibrillation type: paroxysmal Qualified Code(s): I48.0 - Paroxysmal atrial fibrillation (5) Physical deconditioning Priority: Secondary Status: Acute Comments: Is here for rehabilitation but she was very motivated she was doing her PT OT up until 2 days ago when she had gastroenteritis with emesis and vomiting and diarrhea then she developed an aspiration pneumonia and decompensated from a respiratory standpoint requiring transfer to [place] (6) Emesis Priority: Secondary Status: Acute Comments: 2 days ago she had emesis admitted to get better with Zofran she also had diarrhea at that point time she did not have abdominal pain that part resolved but she did develop an aspiration pneumonia from it Qualifiers: Vomiting type: unspecified Vomiting Intractability: unspecified Nausea presence: unspecified Qualified Code(s): R11.10 - Vomiting, unspecified (7) UTI (urinary tract infection) Priority: Secondary Status: Acute Comments: He is currently on Bactrim for this per her sensitivities for staph epi Qualifiers: Urinary tract infection type: acute cystitis Hematuria presence: with hematuria Qualified Code(s): N30.01 - Acute cystitis with hematuria (8) Hypotension Priority: Secondary Status: Acute Comments: She had this 2 nights ago did respond IV fluids. She did get a little fluid overload and did require some IV Lasix per pressures of been stable since several lowered her metoprolol dose to help with us Qualifiers: Hypotension type: unspecified hypotension type Qualified Code(s): I95.9 - Hypotension, unspecified (9) Aspiration pneumonia due to inhalation of vomitus Priority: Secondary Status: Acute Comments: She decompensated today her chest x-ray showed bilateral upper lobe infiltrates and pulmonary congestion she did get Rocephin and Flagyl but she did decompensate from respiratory stand point requiring nonrebreather then BiPAP she was transferred down to [place]. Hospital course: Ms. Bentley is a 82 year old female Who had been intubated down at [place] for right pneumonia and a COPD exacerbation. She came here for rehabilitation she was doing PT OT. She was progressing although her pulmonary status did limit her progression. She was weaned down to 40 mg by mouth of prednisone she had completed her course of Levaquin. 2 days ago she developed a gastroenteritis with emesis and diarrhea. The emesis and diarrhea did resolve but that night she did develop hypotension her metoprolol dose was lowered and she was given IV fluids. Her blood pressure did respond well to that. She did start becoming hypoxic she had a chest x-ray that night that just showed some pulmonary vascular congestion we gave her next her dose of oral Lasix and next day and then today we also gave her some IV Lasix. Throughout the day she became progressively worse from respiratory standpoint she developed tachypnea and respiratory distress she became hypoxic her oxygen was bumped up eventually she was on a nonrebreather [place] was called for transfer and the patient was accepted. In the antrum she was very tachypnea And lethargic she was placed on BiPAP. Then the mobile ICU was fair and elected to go ahead and transfer her and intubate her in route if needed. Family was at the bedside daughter and son. She was transferred in critical condition she was still breathing on her own she was maintaining her oxygen saturations Discharge discussed with: family - Time Spent with Patient Total time spent providing and/or coordinating discharge services: Greater than 30 minutes - Discharge Medications Home Medications: traMADol [Ultram] 50 mg PO TID PRN 02/03/16 [History] Rivaroxaban [Xarelto] 20 mg PO DAILY #30 tablet 02/07/16 [Rx] Albuterol Sulfate [Ventolin Hfa] 2 puff IH Q4H PRN 11/10/17 [History] Umeclidinium Brm/Vilanterol Tr [Anoro Ellipta 62.5-25 Mcg INH] 1 puff IH DAILY 11/10/17 [History] Diltiazem HCl [Diltiazem 24Hr Cd] 360 mg PO DAILY 11/11/17 [History] Budesonide Neb [Pulmicort Neb] 0.5 mg IH BIDR inhsol 11/17/17 [Rx] Docusate [Colace] 100 mg PO BID PRN capsule 11/17/17 [Rx] Furosemide [Lasix] 20 mg PO DAILY #20 tablet 11/17/17 [Rx] Ipratropium/Albuterol Neb [Duoneb] 3 ml IH [id number] 11/17/17 [History] Metoprolol [Lopressor] 25 mg PO BID tablet 11/17/17 [Rx] Docusate [Colace] 100 mg PO BID PRN capsule 11/27/17 [Rx] Ferrous Sulfate 325 mg PO TIDWM tablet 11/27/17 [Rx] Furosemide [Lasix] 40 mg IVP ONCE vial 11/27/17 [Rx] Ipratropium/Albuterol Neb [Duoneb] 3 ml IH Q2H PRN inhsol 11/27/17 [Rx] Metoprolol [Lopressor] 25 mg PO BID tablet 11/27/17 [Rx] Omeprazole [PriLOSEC] 40 mg PO DAILY@0630 capsule. 11/27/17 [Rx] Ondansetron ODT [Zofran ODT] 4 mg SL Q6HR PRN tab.rapdis 11/27/17 [Rx] Rivaroxaban [Xarelto] 20 mg PO 1700 tablet 11/27/17 [Rx] cefTRIAXone [Rocephin] 1,000 mg IVP DAILY vial 11/27/17 [Rx] Allergies/Adverse Reactions: 3 Allergy/AdvReac Type Severity Reaction Status Date / Time Penicillins [PCN] Allergy Rash Verified 02/03/16 13:41 Date of admission: 11/17/17 16:19 Primary care physician: Rosetta Moreau CNP Consults: 11/17/17 16:51 Consult to Occupational Therapy [CONS] Routine Comment: Evaluate, develop and implement POC Reason for Consult: eval Does patient have active BEDREST order?: No Is patient medically & hemodynamically stable?: Yes Consult to Physical Medicine/Rehab [CONS] Routine Reason for Consult: eval Call Completed: Yes Consult to Physical Therapy [CONS] Routine Comment: Evaluate, develop and implement POC Reason for Consult: eval Does patient have active BEDREST order?: No Is patient medically & hemodynamically stable?: Yes Patient assessed for mobility or mobilized this visit?: Yes Consult to Supervisory Investigative Specialist [CONS] Routine Reason for SW Consult: d/c planning - Constitutional Vitals: Temp Pulse Resp BP Pulse Ox 98.4 F 83 36 121/61 89 11/27/17 12:01 11/27/17 16:00 11/27/17 16:00 11/27/17 16:00 11/27/17 16:00 General appearance: Absent: no acute distress (on bipap), answers questions appropriately - Head Head exam: Present: atraumatic, normocephalic - Neck Neck exam general surgery: Present: trachea midline - Respiratory Respiratory exam: Present: accessory muscle use, decreased breath sounds, prolonged expiratory phase, respiratory distress, wheezes, tachypnea - Cardiovascular Cardiovascular exam: Present: irregular rhythm. Absent: systolic murmur - GI/Abdominal GI/Abdominal exam: Present: normal bowel sounds, soft, no peritoneal signs - Extremities Exam Extremities exam: Present: pedal edema - Skin Skin exam: Present: dry, warm - Patient Status Disposition: Transfer Other Condition: Critical Overall status at discharge: other (pt is declining) - Ambulatory Orders Ambulatory Orders: Dietary Supplement Location: Determined By Patient - Discharge Instructions Follow Up With: Rosetta Moreau CNP [Primary Care Provider] -
[2017-11-27] MEDS ORDERED: MetroNIDAZOLE 500 MG/100 ML 500 MG/100 ML BAG IVPB SCH (18:00)
== END 2017-11-27 17:30 | disposition short-term general hospital (02) | DRG 555 ==
LOC: INPGRE 16:19
PROVIDERS: ADMIT Family Medicine; ATTEND Family Medicine